=== PATIENT | female | born 1990 | race Caucasian/White ===

== ENCOUNTER 2018-03-08 15:12 | Outpatient (REF) | payer MEDICAID, SELFPAY ==
[2018-03-08 16:16] LABS: *AMPHETAMINES SCREEN URINE Negative (Negative); *BARBITURATES SCREEN URINE Negative (Negative); *BENZODIAZEPINES SCREEN URINE Negative (Negative); Cannabinoids THC Negative (Negative); Cocaine Screen,Urine Negative (Negative); METHADONE URINE SCREEN Negative (Negative); OPIATES URINE SCREEN Negative (Negative)
[2018-03-08 16:29] LABS: Tricyclic Antidepressants Negative (Negative)
[2018-03-12 16:24] LABS: Buprenorphine Negative; Norbuprenorphine Negative
== END 2018-03-08 15:32 ==
LOC: LBN 15:12
PROVIDERS: Visit Provider Nurse Practitioner
DX: Z34.91 Encounter for supervision of normal pregnancy, unspecified, first trimester (principal)
CPT/HCPCS: 80307; 87086

== ENCOUNTER 2018-04-05 09:35 | Outpatient (CLI) | payer MEDICAID, SELFPAY ==
[2018-04-05 10:17] LABS: Abs Immature Grans 0.03 k/cumm (0.0-0.09); Absolute Basophil Count 0.03 k/cumm (0.0-0.2); Absolute Eosinophil Count 0.06 k/cumm (0.0-0.7); Absolute Lymphocyte Count 1.79 k/cumm (1.2-3.4); Absolute Monocyte Count 0.58 k/cumm (0.11-0.7); Absolute Neutrophil Count 5.68 k/cumm (1.2-6.7); Basophils % 0.4; Eosinophils % 0.7; HGB 13.4 g/dL (12.0-15.5); Immature Grans % 0.4; Lymphocytes % 21.9; Mean Corp. HGB Concentration 33.5 g/dL (32.0-36.0); Mean Corpuscular Hemoglobin 28.3 pg (27.0-33.0); Mean Corpuscular Volume 84.6 fL (80-95); Mean Platelet Volume 9.2 fL (8.0-11.0); Monocytes % 7.1; Neutrophils % 69.5; Platelet Count 271 x1000/uL (130-400); RBC 4.73 m/cumm (4.00-5.20); RBC Distribution Width 12.7 % (11.7-14.6); White Blood Cell Count 8.17 k/cumm (4.4-10.8)
[2018-04-06 09:31] LABS: Hepatitis C Ab w Rflx HCV PCR Negative (NEGAT)
[2018-04-06 09:44] LABS: HIV-1/2 Ag & Ab Screen Negative (NEGAT)
[2018-04-06 10:08] LABS: Hepatitis B Surface Ag Negative (NEGAT)
[2018-04-06 11:43] LABS: Rubella IgG Ab (UVM) Positive; Syphilis Serology (RPR) Negative (Negative); Varicella IgG Antibody Positive
[2018-04-08 18:46] LABS: Result Summary NEGATIVE; Specimen WB Whole Blood
== END 2018-04-05 09:55 ==
PROVIDERS: Nurse Practitioner; PCP Nurse Practitioner; Visit Provider Advanced Practice Midwife
DX: Z34.91 Encounter for supervision of normal pregnancy, unspecified, first trimester (principal); Z01.84 Encounter for antibody response examination; Z11.4 Encounter for screening for human immunodeficiency virus [HIV]; Z11.59 Encounter for screening for other viral diseases; Z13.228 Encounter for screening for other metabolic disorders
CPT/HCPCS: 36415; 80055; 86787; 86803; 86850; 86900; 86901; 87340; 87389; 81220; 86592; 86762

== ENCOUNTER 2018-05-03 09:46 | Outpatient (CLI) | payer MEDICAID, SELFPAY ==
[2018-05-05 12:37] LABS: AFP 23.2 ng/mL; Calculated age at EDD 26 years; Cigarette smoking status non-smoker; GA used in risk estimate Dates estimate; INHIBIN 168 pg/mL; IVF Pregnancy No; Initial or repeat testing Initial testing; Insulin dependent diabetes No; Maternal Weight 155 lbs; Number of Fetuses 1; Physician Phone Number 802-748-7300; Prev Down(T21)/Trisomy Pregnan No; Prev Pregnancy w/NTD No; RECOMMENDED FOLLOW UP None.; Results Summary Normal risk; hCG, TOTAL 27.8 IU/mL; hCG, TOTAL MoM 1.01 MoM; uE3 1.74 ng/mL; uE3 MoM 1.48 MoM
== END 2018-05-03 10:06 ==
PROVIDERS: PCP Nurse Practitioner; Visit Provider Advanced Practice Midwife
DX: Z34.92 Encounter for supervision of normal pregnancy, unspecified, second trimester (principal); Z36.89 Encounter for other specified antenatal screening
CPT/HCPCS: 36415; 81511

== ENCOUNTER 2018-05-10 00:21 | Outpatient (CLI) | payer MEDICAID, SELFPAY ==
--- NOTE | 2018-05-10 14:02 | DI.US_ITS ---
Many abnormalities cannot be diagnosed. A normal exam does not exclude a congenital anomaly. Radiology No. LMP: Exam Date: 05/10/18 [facility] wks days on EDC ([facility]) 10/08/18 Confirmed: HISTORY: SURVEY, Z34.90 PREDICTED GESTATIONAL AGE NUMBER 18.3 weeks with a range of 17.3 week to 19.3 weeks. 1 Determined by___1STUS___LMP_X__EDC Info. pertaining to fetus # PLACENTA PRESENTATION Grade 0-1 Cephalic___ Anterior___Posterior_X__ Breech____ Right Left Transverse(head right___ Fundal___Low-lying___Previa___ Transverse(head left___ Varying___X___ BIOMETRY AMNIOTIC FLUID BPD: 43 mm 19 weeks Normal HC: 163 mm 19 weeks AC: 140 mm 19.3 weeks FL: 29 mm 19 weeks AMNIOTIC FLUID INDEX >26 WK CRL: mm weeks Cisterna Magna: 4 mm CI: 0.79 RUQ: LUQ Cerebellum: 1.8 cm EFW: 280 grams Percentile RLQ: LLQ Total: cms Composite AGE= 19.1 wks EDC by US 10/03/18 BIOPHYSICAL PROFILE ANATOMY IDENTIFIED SCORE 0/2 Heart: 4-Chamber__X_Rate:BPM__153___ LVOT: X____ RVOT: X__ Amniotic Fluid(>2cms)____ Stomach:____X___ Kidneys: X__ Respirations (>30 secs) Bladder: X___ Post. Fossa:____X Body Flex/Extension 3 vessel cord:__X____Ventricles: X cord insertion:__X___ Lips:_X___ Extremity Flex/Extension spinal morphology:___X Nose:X Total Score= Palate:__X____ NS=not seen The fetus was in variable position during the exam. The placenta is posterior. The biometric measurements correspond to 19 weeks 1 day. No abnormalities are identified. The amount of amniotic fluid appears normal. IMPRESSION: survey is within normal limits.
== END 2018-05-10 00:41 ==
PROVIDERS: PCP Nurse Practitioner; Visit Provider Advanced Practice Midwife
DX: Z34.92 Encounter for supervision of normal pregnancy, unspecified, second trimester (principal)
CPT/HCPCS: 76805

== ENCOUNTER 2018-07-19 07:25 | Outpatient (CLI) | payer MEDICAID, SELFPAY ==
[2018-07-19 08:47] LABS: HCT 34.1 % (36.0-46.0); HGB 11.3 g/dL (12.0-15.5); Mean Corp. HGB Concentration 33.1 g/dL (32.0-36.0); Mean Corpuscular Hemoglobin 27.9 pg (27.0-33.0); Mean Corpuscular Volume 84.2 fL (80-95); Mean Platelet Volume 8.8 fL (8.0-11.0); Platelet Count 281 x1000/uL (130-400); RBC 4.05 m/cumm (4.00-5.20); RBC Distribution Width 12.3 % (11.7-14.6); White Blood Cell Count 8.61 k/cumm (4.4-10.8)
[2018-07-19 08:52] LABS: Glucose,1 Hr (Glucola) 115 mg/dL (80-140)
== END 2018-07-19 07:45 ==
PROVIDERS: PCP Nurse Practitioner; Visit Provider Advanced Practice Midwife
DX: Z34.92 Encounter for supervision of normal pregnancy, unspecified, second trimester (principal); Z01.84 Encounter for antibody response examination
CPT/HCPCS: 36415; 82950; 85027; 86850; 90384

== ENCOUNTER 2018-09-14 14:40 | Outpatient (REF) | payer MEDICAID, SELFPAY ==
[2018-09-14 18:03] LABS: *AMPHETAMINES SCREEN URINE Negative (Negative); *BARBITURATES SCREEN URINE Negative (Negative); *BENZODIAZEPINES SCREEN URINE Negative (Negative); Cannabinoids THC Negative (Negative); Cocaine Screen,Urine Negative (Negative); METHADONE URINE SCREEN Negative (Negative); OPIATES URINE SCREEN Negative (Negative)
[2018-09-14 18:07] LABS: Tricyclic Antidepressants Negative (Negative)
[2018-09-17 13:53] LABS: Buprenorphine Negative; Norbuprenorphine Negative
== END 2018-09-14 15:00 ==
LOC: LBN 14:40
PROVIDERS: PCP Nurse Practitioner; Visit Provider Advanced Practice Midwife
DX: Z34.93 Encounter for supervision of normal pregnancy, unspecified, third trimester (principal); Z36.85 Encounter for antenatal screening for Streptococcus B
CPT/HCPCS: 80307; 87081

== ENCOUNTER 2018-09-30 21:42 | Inpatient (IN) | payer MEDICAID, SELFPAY ==
[2018-09-30 22:28] LABS: HCT 35.5 % (36.0-46.0); HGB 11.1 g/dL (12.0-15.5); Mean Corp. HGB Concentration 31.3 g/dL (32.0-36.0); Mean Corpuscular Hemoglobin 24.6 pg (27.0-33.0); Mean Corpuscular Volume 78.7 fL (80-95); Mean Platelet Volume 9.6 fL (8.0-11.0); Platelet Count 318 x1000/uL (130-400); RBC 4.51 m/cumm (4.00-5.20); RBC Distribution Width 14.3 % (11.7-14.6); White Blood Cell Count 11.09 k/cumm (4.4-10.8)
[2018-09-30] MEDS: Normal Saline Flush 10 ML SYR (22:30)
[2018-10-01] MEDS: Ibuprofen 600 MG TAB PO ×2 (00:24→11:08)
[2018-10-01] MEDS: Acetaminophen 325 MG TAB 650 MG PO ×2 (03:40→19:06)
[2018-10-01 07:20] LABS: HCT 33.1 % (36.0-46.0); HGB 10.5 g/dL (12.0-15.5); Mean Corp. HGB Concentration 31.7 g/dL (32.0-36.0); Mean Corpuscular Hemoglobin 24.9 pg (27.0-33.0); Mean Corpuscular Volume 78.6 fL (80-95); Mean Platelet Volume 9.5 fL (8.0-11.0); Platelet Count 285 x1000/uL (130-400); RBC 4.21 m/cumm (4.00-5.20); RBC Distribution Width 14.1 % (11.7-14.6); White Blood Cell Count 14.52 k/cumm (4.4-10.8)
[2018-10-01] MEDS: Hamamelis Leaf/Glycerin 100 EACH BOX PR (09:16)
[2018-10-01] MEDS: Sertraline 50 MG TAB PO (19:01)
[2018-10-02] MEDS: Ibuprofen 600 MG TAB PO (00:01)
== END 2018-10-02 10:00 | disposition home or self-care (01) | DRG 807 ==
PROVIDERS: Admitting Provider Advanced Practice Midwife; PCP Nurse Practitioner; Visit Provider Advanced Practice Midwife
DX: O77.0 Labor and delivery complicated by meconium in amniotic fluid (principal); Z37.0 Single live birth; Z3A.38 38 weeks gestation of pregnancy; O99.344 Other mental disorders complicating childbirth; F43.10 Post-traumatic stress disorder, unspecified; F32.9 Major depressive disorder, single episode, unspecified
CPT/HCPCS: 36415; 85027; 85461; 86850; 86900; 86901; 90384; 86870; J2790; J3490

== ENCOUNTER 2019-03-15 22:36 | Outpatient (REF) | payer MEDICAID, SELFPAY | END 2019-03-15 22:56 | LOC: NCHCN 22:36 | PROVIDERS: PCP Nurse Practitioner; Visit Provider Nurse Practitioner Family | DX: N89.8 Other specified noninflammatory disorders of vagina (principal) | CPT/HCPCS: 87480; 87510; 87660 ==

== ENCOUNTER 2019-08-22 14:54 | Outpatient (REF) | payer MEDICAID, SELFPAY | END 2019-08-22 15:14 | LOC: NCHCN 14:54 | PROVIDERS: PCP Nurse Practitioner Family; Visit Provider Nurse Practitioner Family | DX: R30.9 Painful micturition, unspecified (principal) | CPT/HCPCS: 87086 ==

== ENCOUNTER 2020-03-28 14:14 | Outpatient (REF) | payer MEDICAID, SELFPAY ==
[2020-03-31 16:34] LABS: COVID-19 RT-PCR Result NEGATIVE (Negative)
== END 2020-03-28 14:34 ==
LOC: NCHCN 14:14
PROVIDERS: PCP Nurse Practitioner Family; Visit Provider Family Medicine
DX: Z20.828 Contact with and (suspected) exposure to other viral communicable diseases (principal)
CPT/HCPCS: U0003

== ENCOUNTER 2020-05-07 14:51 | Outpatient (REF) | payer MEDICAID, SELFPAY ==
[2020-05-08 23:33] LABS: COVID-19 RT-PCR Result Positive (Negative)
== END 2020-05-07 15:11 ==
LOC: NCHCN 14:51
PROVIDERS: Family Medicine; PCP Nurse Practitioner Family; Visit Provider Internal Medicine
DX: Z20.822 Contact with and (suspected) exposure to COVID-19 (principal)
CPT/HCPCS: U0003

== ENCOUNTER 2020-05-25 15:52 | Outpatient (REF) | payer MEDICAID, SELFPAY ==
[2020-05-25 13:50] LABS: Bilirubin Negative (Negative); Blood Moderate (Negative); Clarity Sl Cloudy (Clear); Glucose Negative (Negative); Ketones Negative (Negative); Leukocyte Esterase Small (Negative); Nitrite Positive (Negative); Urobilinogen 0.2 EU/dL (Up TO 0.2)
[2020-05-25 14:07] LABS: WBC 20-50 HPF (0-5)
[2020-05-25 14:08] LABS: Bacteria Few HPF (Negative); C & S Indicated? No/Sq. Contamination; Casts Negative LPF (Negative); Crystals Negative HPF (Negative); Epithelial Cells Many HPF (Negative); Mucus Negative (Negative)
== END 2020-05-25 16:12 ==
LOC: NCHCN 15:52
PROVIDERS: PCP Nurse Practitioner Family; Visit Provider Family Medicine
DX: R30.0 Dysuria (principal)
CPT/HCPCS: 81003; 81015

== ENCOUNTER 2020-05-29 16:20 | Outpatient (REF) | payer MEDICAID, SELFPAY ==
[2020-05-30 14:09] LABS: Chlamydia Result Negative (Negative); GC Result Negative (Negative)
== END 2020-05-29 16:21 | disposition home or self-care (01) ==
LOC: NCHCN 16:20
PROVIDERS: PCP Nurse Practitioner Family; Visit Provider Family Medicine
DX: R30.0 Dysuria (principal)
CPT/HCPCS: 87491; 87591

== ENCOUNTER 2020-07-19 03:00 | Outpatient (CLI) | payer MEDICAID, SELFPAY ==
[2020-07-19 10:57] LABS: Ferritin 7 ng/mL (8-252)
== END 2020-07-19 03:01 | disposition home or self-care (01) ==
PROVIDERS: PCP Nurse Practitioner Family; Visit Provider Nurse Practitioner
DX: N92.0 Excessive and frequent menstruation with regular cycle (principal)
CPT/HCPCS: 36415; 82728

== ENCOUNTER 2020-09-18 15:47 | Outpatient (REF) | payer MEDICAID, SELFPAY ==
--- NOTE | 2020-09-18 15:15 | PAPFT_PTH ---
PATIENT: Margie Mariscal LOC: [facility] U#:[id number] AGE/SX: 30/F ROOM: RE09/18/[address]: Tiffany Edgar NP : 1990 BED: DIS: 09/18/2020 SPEC #: [id number] RECD: 09/18/20 18:18 STATUS: KATERINA REQ #: [id number] JACK: 09/18/20 15:[address]: Tala OCASIO,Tiffany DEPT: [facility] Cytology RECD BY: Karina Martin ENTERED: 09/18/20 18:19 SP TYPE: PAPFT OTHR DR: Evelin Aceves Tissues: 1 - CX/ENDOCX FOR PAP SMEARS Procedures: PAP THIN PREP/UVM Screening Comments: [id number] (CHLAMYDIA/GC)
[2020-09-19 14:07] LABS: Chlamydia Result Negative (Negative); GC Result Negative (Negative)
== END 2020-09-18 15:48 | disposition home or self-care (01) ==
LOC: LBN 15:47
PROVIDERS: PCP Nurse Practitioner Family; Visit Provider Nurse Practitioner Women's Health
DX: Z11.3 Encounter for screening for infections with a predominantly sexual mode of transmission (principal); Z12.4 Encounter for screening for malignant neoplasm of cervix
CPT/HCPCS: 87491; 87591; 88142

== ENCOUNTER 2020-10-10 00:56 | Outpatient (CLI) | payer MEDICAID, SELFPAY ==
--- NOTE | 2020-10-10 06:15 | DI.US_ITS ---
Exam(s) US PELVIS TRANSVAGINAL EXAM: US PELVIS TRANSVAGINAL CLINICAL HISTORY: Menorrhagia, dyspareunia, dysmenorrhea,n92.0,n94.6 TECHNIQUE: Ultrasound of the pelvis was performed both transabdominal and transvaginal. COMPARISON: US US OB 2-3 trimester from 05/10/2018 FINDINGS: UTERUS: Nongravid and anteverted Measures 8.6 cm length x 4.3 cm AP x 5.5 cm wide. There are no uterine fibroids. Endometrial thickness measures 2 mm. There is no fluid in the endometrial canal. CERVIX: There are no obvious nabothian cysts. RIGHT OVARY: Measures 3.2 x 1.9 x 2.1 cm Contains small follicular cysts measuring less than 1 cm. LEFT OVARY: Measures 0.2 x 1.6 x 1.8 cm Also contains small follicular cysts measuring less than 1 cm. Vascular flow is demonstrated in both ovaries. CUL-DE-SAC: No free fluid evident. IMPRESSION: 1. Normal appearing uterus and age-appropriate endometrium. 2. No abnormal ovarian findings. 3. No free fluid evident in the adnexal regions and cul-de-sac. DATA REPOSITORY:
== END 2020-10-10 01:16 ==
PROVIDERS: PCP Nurse Practitioner Family; Visit Provider Nurse Practitioner Women's Health
DX: N92.0 Excessive and frequent menstruation with regular cycle (principal); N94.6 Dysmenorrhea, unspecified; N94.10 Unspecified dyspareunia
CPT/HCPCS: 76830; 76856

== ENCOUNTER 2021-05-15 15:53 | Outpatient (REF) | payer MEDICAID, SELFPAY | END 2021-05-15 15:54 | disposition home or self-care (01) | LOC: LBN 15:53 | PROVIDERS: PCP Nurse Practitioner Family; Visit Provider Physician Assistant Medical | DX: N39.0 Urinary tract infection, site not specified (principal) | CPT/HCPCS: 87086 ==

== ENCOUNTER 2022-03-14 17:16 | Emergency (ER) | payer MEDICAID, SELFPAY ==
[2022-03-14 17:20] VITALS: BP 117/68; PULSE 69; RESP 17; TEMP 37.2; O2SAT 98
--- NOTE | 2022-03-14 17:29 | W.ED.GENAD ---
Discharge Plan Disposition Patient Disposition: Home Condition: Stable Discharge Details Clinical Impression: Abdominal pain, Abrasion Primary Care Provider: Evelin Aceves ED Provider: Carlene Cancino Home Meds and New Rx's Prescriptions: Continued melatonin 1 mg tablet 1 mg PO HS PRN Mirena 20 mcg/24 hours (6 yrs) 52 mg intrauterine device 1 device intrauterine ONCE Rx Instructions: as a single dose Discharge Instructions Instructions: Abrasion (ED), Abdominal Pain (ED) Additional Instructions: As we discussed, your exam is reassuring here today. Your IUD looks to be appropriately positioned but certainly if you have any persistent symptoms for the next few days, you should have a formal ultrasound through your gynecology team. Please encourage hydration. Tylenol and/or ibuprofen as needed for discomfort. If he develops increased pain, fever/chills, increased bleeding or other new/worsening symptoms please seek care urgently once again. Otherwise, please follow-up with primary care in 1 to 2 weeks for reevaluation. Referrals: Evelin Aceves [Primary Care Provider] - Discharge Data Discharge Date/Time-TO BE ENTERED AT DEPARTURE: 03/14/22 18:20 Medical Decision Making Patient is a pleasant 32-year-old female presented with chief complaint of abdominal trauma. She reports that this morning she was in a storage unit standing up on a piece of wood trying to get on a piece of heavy equipment. States that the wood broke and she fell striking her lower abdomen against a metal frame. States that initially she had some vaginal spotting which is since subsided. She is primarily concerned that IUD may have been displaced secondary to trauma. She did suffer an abrasion to her abdomen, tetanus is up-to-date. States that her pain has improved as has the vaginal spotting although she does remain uncomfortable. She has not had any analgesics as of yet to help with her discomfort. On exam, patient appears nontoxic. Vital signs are stable. Abdominal exam is reassuring. She does have a 6 cm superficial abrasion over the pelvic bone. No swelling or ecchymosis. No peritoneal findings on exam. Ultrasound performed by myself and Dr. Casanova with the IUD being able to be visualized from pelvic view. This does appear to be in appropriate alignment within the uterus. Remaining FAST exam without evidence of free fluid. Vaginal exam performed, no active bleeding from cervix, I do see some pink fluid consistent with perhaps some blood from earlier. No vaginal trauma is evident. Bimanual exam is reassuring with no chandelier sign or masses. Esmer and I discussed further advanced imaging including CT scan. At this time, she is feeling reassured and would prefer to hold off. Her pain and bleeding have improved throughout the day. Her PE and US are reassuring. Very strict return precautions were discussed. Discussed management of her discomfort. All of her questions and concerns were addressed, she is in agreement with this plan. Sign Out No HPI General Date/Time Provider Initiated Documentation: 03/14/22 17:28. Limitations to Documentation: no limitations. Information obtained by: patient and RN notes reviewed. History of Present Illness 32 year old F presents to the emergency department with the chief complaint of vaginal bleeding, abrasion to lower abdomen, described as mild, with intensity rated at 3. Quality is described as aching, and is localized to the abdomen. Patient reports no radiation. Patient started experiencing this hour(s) (began early this AM) and it has been constant (improving). No relieving factors improve symptom(s), No exacerbating factors reported . Patient notes denies chest pain, headaches, loss of appetite, malaise, nausea/vomiting, shortness of breath and weakness. Patient did receive the following treatments prior to arrival, none Related Data Home Medications Medication Instructions Recorded Confirmed melatonin 1 mg tablet 1 mg PO HS PRN 09/18/20 03/14/22 levonorgestrel 20 mcg/24 hours (8 1 device intrauterine ONCE 10/23/20 03/14/22 yrs) 52 mg intrauterine device (Mirena) Allergies Allergy/AdvReac Type Severity Reaction Status Date / Time sertraline [From Zoloft] Allergy Mild Other (See Unverified 03/14/22 17:26 Comment) General Stated Complaint: [employer] KERRI: 3 Review of Systems Constitutional Constitutional: Reports as per HPI, Denies fever(s) and Denies headache(s) ENT Ears, Nose, Mouth, and Throat: Denies headache(s) Cardiovascular Cardiovascular: Reports as per HPI, Denies chest pain and Denies dyspnea Respiratory Respiratory: Reports as per HPI, Denies cough and Denies dyspnea Gastrointestinal Gastrointestinal: Reports as per HPI Musculoskeletal Musculoskeletal: Reports as per HPI and Denies back pain Integumentary/Breasts Skin/Breast: Reports as per HPI Neurologic Neurologic: Reports as per HPI and Denies headache(s) PFSH All Active Problems (Updated 03/14/22 @ 18:17 by YISEL Buckley) Abdominal pain (Acute) Abrasion (Acute) IUD surveillance (Acute 10/23/20) Mirena Sleep apnea (Acute) Depression (Chronic) Has used sertraline in the past Surgical History (Updated 09/18/20 @ 15:22 by Tiffany Edgar NP) H/O sinus surgery S/p bilateral myringotomy with tube placement Family History Mother Chronic mental illness Drug abuse Father Medical history unknown Sister Chronic mental illness Drug abuse Social History Smoking/Tobacco Use Status: Never Tobacco: How many years used: 2 Smoking risk assessment performed?: Yes Alcohol Intake: never Substance use type: marijuana Counseling given: Yes Household members: significant other, children and other Details: 2 children: Rosy Beard Housing: house Number of Children: 2 current occupation: Stay at home What is your relationship status?: living with partner Panel score (0-1 are the most socially isolated patients): 1 Additional Social history: Relocated from [place]. Mando is employed at the [employer] for [employer] and travels extensively throughout [facility] Female Reproductive History Menstrual control method: other (partner with vasectomy) History History 7 Para 3 Hx # Term Pregnancies 3 Multiple births 0 Hx # Pregnancies 0 Ectopic pregnancies 0 AB induced 3 Hx Number of Living Children 3 AB spontaneous 1 Past Pregnancies Del. Date GA/Weeks # Preg Succ Route Wgt Sex Labor Lgth Anesthesia Location Prov Complic 09/17/09 39 No vaginal 3175.147 g Female 6-7 hours regional 09/04/16 41 No vaginal 3288.545 g Female IOL for postdates regional 09/30/18 No Male Delivery Date: 09/17/09 Last Updated by: Luh Dc CNM [facility], uncomplicated, 3 pushes Delivery Date: 09/04/16 Last Updated by: Millie Medina CNM epidural, IOL for postdates, uncomplicated, epidural had a painful window Delivery Date: 09/30/18 Last Updated by: OTIS Link Exam Const General: cooperative, healthy appearing, comfortable, no acute distress and well developed Nutritional Appearance: average body habitus and well nourished Orientation: alert and awake [facility] Head: normal to inspection Mouth: moist mucous membranes Resp Effort & Inspection: normal respiratory effort, able to speak in complete sentences and no respiratory distress Auscultation: clear to auscultation bilaterally, no rales, no rhonchi and no wheezes Cardio Rate: regular rate Rhythm: regular rhythm Heart Sounds: S1 normal and S2 normal GI Inspection: abnormal to inspection (abrasion to lower abdomen, no surrounding ecchymosis/swelling) Palpation: soft, no hepatosplenomegaly, not firm, no guarding, no masses, no pulsatile masses, not rigid and tender (over abrasion) obturator sign negative, psoas sign negative, with no rebound tenderness and Rovsing's sign negative Percussion: normal to percussion Auscultation: normal bowel sounds Abdomen image: 1. area of superficial abrasion, no deep laceration. No active bleeding. No surrounding erythema, warmth, swelling, ecchymosis. Tender over the area of abrasion, no peritoneal findings External Female Exam: normal external appearance, normal appearance of the urethra, no tenderness externally, no external swelling and no lesions Speculum Exam - Vagina: normal appearance of the vagina, normal vaginal discharge, no lacerations, No vaginal bleeding, no masses, no swelling and nontender Speculum Exam - Cervix: normal appearance of the cervix (IUD string in place) and nontender Bimanual Exam- Vagina & Uterus: normal bimanual exam, normal palpation and No tender Bimanual Exam- Adnexa, other: normal adnexae OB/External & Speculum: No vaginal bleeding Back/Spine/Pelvis Back: no CVA tenderness Skin Trauma: abrasion Neuro General: patient alert and patient awake Cognition: normal cognition Speech: speech normal Gait: normal gait Psych Appearance: grossly normal and well kempt Mental Status: mental status grossly normal Speech and Movement: speech and movement normal Course Vital Signs Vital signs: Vital Signs Temperature 37.2 C 03/14/22 17:20 Pulse 69 03/14/22 17:20 Respiratory Rate 17 03/14/22 17:20 Blood Pressure 117/68 03/14/22 17:20 Pulse Oximetry 98 11/18/22 17:20 Temperature 37.2 C 03/14/22 17:20 Temperature Source Oral 03/14/22 17:20 Pulse 69 03/14/22 17:20 Respiratory Rate 17 03/14/22 17:20 Respiratory Effort Non-Labored 03/14/22 17:23 Blood Pressure 117/68 03/14/22 17:20 Blood Pressure Position Sitting 03/14/22 17:20 Pulse Oximetry 98 03/14/22 17:20 Oxygen Delivery Method Room Air 03/14/22 17:20 Oxygen Flow Rate 0 03/14/22 17:20 Pain Level 3 03/14/22 17:23
[2022-03-14] MEDS: Acetaminophen 500 MG TAB ×2 (18:11)
[2022-03-14] MEDS: Ibuprofen 600 MG TAB (18:11)
== END 2022-03-14 18:20 | disposition home or self-care (01) ==
PROVIDERS: Emergency Provider Physician Assistant; PCP Nurse Practitioner Family
DX: R10.30 Lower abdominal pain, unspecified (principal); N93.8 Other specified abnormal uterine and vaginal bleeding; W17.89XA Other fall from one level to another, initial encounter; S30.810A Abrasion of lower back and pelvis, initial encounter
CPT/HCPCS: 81025; 99283

== ENCOUNTER 2022-06-20 00:52 | Outpatient (CLI) | payer MEDICAID, SELFPAY ==
--- NOTE | 2022-06-20 08:00 | DI.US_ITS ---
Exam(s) US PELVIS TRANSVAGINAL EXAM: US PELVIS TRANSVAGINAL CLINICAL HISTORY: heavy menstrual bleeding,N92.0 TECHNIQUE: Transabdominal and transvaginal imaging was performed using standard protocol. COMPARISON: US US PELVIS TRANSVAGINAL from 10/10/2020 FINDINGS: UTERUS: Anteverted. 9.6 x 4.7 x 5.9 cm Endometrium: 9 mm Myometrium: Unremarkable. Cervix: Unremarkable. OVARIES: Right: Cyst or mass: 1.9 centimeter follicle. Left: Cyst or mass: None. DOPPLER: Color: Symmetric and uniform flow to both ovaries. No hyperemia. CUL-DE-SAC: Free fluid: None. IMPRESSION: 1. Normal-appearing uterus with endometrial stripe within normal limits. 2. Unremarkable bilateral ovaries. DATA REPOSITORY:
== END 2022-06-20 01:12 ==
LOC: DI 00:52
PROVIDERS: PCP Nurse Practitioner Family; Visit Provider Nurse Practitioner Women's Health
DX: N92.0 Excessive and frequent menstruation with regular cycle (principal)
CPT/HCPCS: 76830; 76856

== ENCOUNTER 2022-08-01 15:49 | Outpatient (REF) | payer MEDICAID, SELFPAY ==
[2022-08-04 10:03] LABS: HIV-1/2 Ag & Ab Screen Negative (Negative)
[2022-08-04 11:09] LABS: HSV Type 1 Ab, IgG Negative (Negative); HSV Type 2 Ab, IgG Negative (Negative)
[2022-08-04 12:02] LABS: Syphilis Serology (RPR) Negative (Negative)
== END 2022-08-01 15:50 | disposition home or self-care (01) ==
LOC: NCHCN 15:49
PROVIDERS: PCP Nurse Practitioner Family; Visit Provider Family Medicine
DX: Z11.3 Encounter for screening for infections with a predominantly sexual mode of transmission (principal)
CPT/HCPCS: 87389; 86592; 86695; 86696

== ENCOUNTER 2022-12-27 14:45 | Outpatient (REF) | payer MEDICAID, SELFPAY ==
[2022-12-27 16:07] LABS: Abs Immature Grans 0.02 10^3/uL (0.0-0.06); Absolute Basophil Count 0.05 10^3/uL (0.0-0.2); Absolute Lymphocyte Count 2.07 10^3/uL (1.2-3.4); Absolute Monocyte Count 0.42 10^3/uL (0.1-0.8); Absolute Neutrophil Count 4.93 10^3/uL (1.2-6.7); Basophils % 0.7; Eosinophils % 1.3; HCT 41.3 % (36.0-46.0); HGB 13.8 g/dL (11.2-15.7); Immature Grans % 0.3; Lymphocytes % 27.3; MCH 28.6 pg (27.0-33.0); MCHC 33.4 % (32.0-36.0); MCV 86 fL (80-95); MPV 9.2 fL (8.0-11.0); Monocytes % 5.5; Neutrophils % 64.9; Platelet Count 298 10^3/uL (130-400); RBC 4.83 10^6/uL (3.93-5.22); RDW 11.9 % (11.7-14.6); RDW-SD 36.6 fL; WBC 7.59 10^3/uL (4.4-10.8)
[2022-12-27 16:16] LABS: ESR 6 mm/hr (0-20)
[2022-12-27 16:43] LABS: ALT 14 U/L (14-59); AST 12 U/L (15-37); Albumin 4.1 g/dL (3.4-5.0); Alkaline Phosphatase 58 U/L (46-116); Anion Gap 10.2 mmol/L (3-11); BUN 10 mg/dL (7-18); Bilirubin, Total 0.4 mg/dL (0.2-1.0); CO2 27.8 mmol/L (21.0-32.0); CREATININE 0.6 mg/dL (0.55-1.02); Calcium 9.1 mg/dL (8.5-10.1); Chloride 102 mmol/L (98-107); Estimated GFR 123.76 (mL/min/1.73m2); Glucose 94 mg/dL (74-106); Potassium 4.2 mmol/L (3.5-5.1); Sodium 140 mmol/L (136-145); TSH (W/Ref FT4) 0.83 uIU/mL (0.36-3.74); Total Protein 7.7 g/dL (6.4-8.2)
[2022-12-29 10:50] LABS: Lyme Ab w Rflx to Lyme Confirm Negative (Negative)
[2022-12-31 08:06] LABS: Anaplasma phagocytophilum Negative (Negative); B. miyamotoi PCR Negative (Negative); Babesia divergens/MO-1 Negative (Negative); Babesia duncani Negative (Negative); Babesia microti Negative (Negative); Ehrlichia chaffeensis Negative (Negative); Ehrlichia ewingii/canis Negative (Negative); Ehrlichia muris eauclairensis Negative (Negative)
== END 2022-12-27 14:46 | disposition home or self-care (01) ==
LOC: LBN 14:45
PROVIDERS: PCP Nurse Practitioner Family; Visit Provider Family Medicine
DX: R53.83 Other fatigue (principal)
CPT/HCPCS: 80053; 85652; 87798; 84443; 85025; 86618

== ENCOUNTER 2023-02-13 18:54 | Outpatient (REF) | payer MEDICAID, SELFPAY ==
[2023-02-13 14:44] LABS: HGB 13.6 g/dL (11.2-15.7); MCHC 33.2 % (32.0-36.0); MCV 87 fL (80-95); Platelet Count 314 10^3/uL (130-400); RBC 4.69 10^6/uL (3.93-5.22); RDW 12.2 % (11.7-14.6); RDW-SD 39.2 fL; WBC 6.87 10^3/uL (4.4-10.8)
== END 2023-02-13 18:55 | disposition home or self-care (01) ==
LOC: NCHCN 18:54
PROVIDERS: PCP Nurse Practitioner Family; Visit Provider Family Medicine
DX: G25.81 Restless legs syndrome (principal)
CPT/HCPCS: 85027

== ENCOUNTER 2023-02-25 00:12 | Emergency (ER) | payer MEDICAID, SELFPAY ==
[2023-02-25 00:15] VITALS: BP 123/64; PULSE 96; RESP 18; TEMP 36.8; O2SAT 99
--- NOTE | 2023-02-25 00:30 | DI.RAD_ITS ---
Exam(s) XR FOOT LT COMPLETE EXAM: XR FOOT LT COMPLETE CLINICAL HISTORY: pain post fall. TECHNIQUE: 2D digital imaging was performed. Three views. COMPARISON: No exams were available for comparison FINDINGS: BONES: There is a E tiny sliver of bone seen adjacent to the dorsal aspect of the anterior talus whic h could represent a small avulsion fragment. No additional fractures are suspected.. No bony destru ctive lesion is seen. JOINTS: No dislocation present. SOFT TISSUE: Normal. IMPRESSION: Small avulsion fragment from the dorsal aspect of the talus. DATA REPOSITORY: RADIATION DOSE DELIVERED:
--- NOTE | 2023-02-25 00:37 | W.ED.GENAD ---
Discharge Plan Disposition Patient Disposition: Home Discharge Details Clinical Impression: Foot fracture, left Primary Care Provider: Evelin Aceves ED Provider: Ana M Aguayo Home Meds and New Rx's Prescriptions: Continued melatonin 1 mg tablet 1 mg PO HS PRN duloxetine 20 mg capsule,delayed release(DR/EC) 20 mg PO DAILY Patient Comments: TAKE ONE CAPSULE BY MOUTH EVERY DAY gabapentin 100 mg capsule 100 mg PO .at bedtime Patient Comments: TAKE 1 CAPSULE BY MOUTH AT BEDTIME Discharge Instructions Instructions: Foot Fracture in Adults (ED) Additional Instructions: Ice 20 minutes on and 20 minutes off for the next 72 hours. An Jeremie wrap and elevation may help with swelling. A loose shoe will help. Crutches with touchdown weightbearing as tolerated. Recheck with Dr. Hernandez from ortho as needed; they will call you with a follow up appt. Expect your foot to get more swollen and black and blue before it starts to get better. Ibuprofen 600 mg every 6 hours and/or Tylenol 650 mg every 6 hours as needed for pain. Discharge Data Discharge Date/Time-TO BE ENTERED AT DEPARTURE: 02/25/23 01:47 Medical Decision Making Patient was updated on the tiny avulsion or chip fracture. Jeremie wrap, ice, and elevation for swelling. Crutches with touchdown weightbearing as tolerated. Recheck with orthopedics who will call her for follow-up appointment. Medical Records Medical records reviewed: Yes I reviewed the patient's medical records. Imaging Data Radiologic Study: Imaging: X-Ray Radiologist's impression: Left foot: Tiny calcification at the dorsal margin of the talar head suspicious for small acute capsular avulsion injury. HPI General Date/Time Provider Initiated Documentation: 02/25/23 00:35. HPI Narrative: This 33-year-old female patient presents with a chief complaint of left foot pain sustained after falling on stairs. She twisted her foot when someone grabbed her, she lost her balance, and they did not hold onto her. She denies hitting her head or any neck pain. She cannot walk on it. She does have some lateral midfoot swelling but no ankle pain. There is no numbness or weakness. There is no other injury. Related Data Home Medications Medication Instructions Recorded Confirmed melatonin 1 mg tablet 1 mg PO HS PRN 09/18/20 02/25/23 duloxetine 20 mg capsule,delayed 20 mg PO DAILY 02/25/23 02/25/23 release gabapentin 100 mg capsule 100 mg PO .at bedtime 02/25/23 02/25/23 Allergies Allergy/AdvReac Type Severity Reaction Status Date / Time sertraline [From Zoloft] Allergy Mild Other (See Unverified 02/25/23 00:20 Comment) General Stated Complaint: Orthopedic KERRI: 4 Review of Systems All systems reviewed & are unremarkable except as noted in HPI and below PFSH All Active Problems (Updated 02/25/23 @ 01:14 by Ana M Aguayo MD) Foot fracture, left (Acute) Heavy menstrual bleeding (Acute) Sleep apnea (Acute) Depression (Chronic) Has used sertraline in the past Surgical History H/O sinus surgery S/p bilateral myringotomy with tube placement Family History Mother Chronic mental illness Drug abuse Father Medical history unknown Sister Chronic mental illness Drug abuse Social History Smoking/Tobacco Use Status: Current-Occasional Tobacco Type: cigarettes Tobacco: How many years used: 2 Smoking risk assessment performed?: Yes Alcohol Intake: never Substance use type: does not use Counseling given: Yes Household members: significant other, children and other Details: 2 children: Kisha, Rosy Housing: house Number of Children: 2 current occupation: Stay at home What is your relationship status?: living with partner Panel score (0-1 are the most socially isolated patients): 1 Do you feel safe at home: Yes Do you feel safe in your relationship?: Yes Additional Social history: Relocated from [place]. Mando is employed at the [employer] for [employer] and travels extensively throughout [facility] Female Reproductive History Menstrual control method: other (partner with vasectomy) History History 7 Para 3 Hx # Term Pregnancies 3 Multiple births 0 Hx # Pregnancies 0 Ectopic pregnancies 0 AB induced 3 Hx Number of Living Children 3 AB spontaneous 1 Past Pregnancies Del. Date GA/Weeks # Preg Succ Route Wgt Sex Labor Lgth Anesthesia Location Prov Complic 09/17/09 39 No vaginal 3175.147 g Female 6-7 hours regional 09/04/16 41 No vaginal 3288.545 g Female IOL for postdates regional 09/30/18 No Male Delivery Date: 09/17/09 Last Updated by: Luh Dc CNM [facility], [facility], uncomplicated, 3 pushes Delivery Date: 09/04/16 Last Updated by: Millie Medina CNM epidural, IOL for postdates, uncomplicated, epidural had a painful window Delivery Date: 09/30/18 Last Updated by: OTIS Link Exam Const General: no acute distress, well developed and well groomed Nutritional Appearance: well nourished Orientation: alert and awake Limitations: mental status not altered HENHI Head: normocephalic and atraumatic Eyes Conjunctivae: conjunctivae normal Neck Neck: supple Resp Effort & Inspection: normal respiratory effort Skin General skin exam: no ecchymosis, no erythema and other (mild edema L lateral forefoot) Neuro General: patient alert and patient awake Cognition: normal cognition Speech: speech normal Gait: other (unable to bear weight) Sensory Exam: no sensory deficits noted Extrem Left lower extremity: ankle (no malleolar TTP, no ligament TTP) and foot (L lat midfoot edema and TTP, remainder NTP, nl color/temp/CR/DP pulse) Course Vital Signs Vital signs: Vital Signs Temperature 36.8 C 02/25/23 00:15 Pulse 96 H 02/25/23 00:15 Respiratory Rate 18 02/25/23 00:15 Blood Pressure 123/64 02/25/23 00:15 Pulse Oximetry 99 02/25/23 00:15 Temperature 36.8 C 02/25/23 00:15 Temperature Source Temporal Artery Scan 02/25/23 00:15 Pulse 96 H 02/25/23 00:15 Respiratory Rate 18 02/25/23 00:15 Respiratory Effort Normal, Non-Labored 02/25/23 00:19 Blood Pressure 123/64 02/25/23 00:15 Blood Pressure Position Sitting 02/25/23 00:15 Pulse Oximetry 99 02/25/23 00:15 Oxygen Delivery Method Room Air 02/25/23 00:15 Oxygen Flow Rate 0 02/25/23 00:15 Pain Level 2 02/25/23 00:15 PAWSS Have you Been Recently Intoxicated or Drunk Within the Last 30 days?: No Have you Ever Experienced Previous Episodes of Alcohol Withdrawal?: No Have you ever Experienced Withdrawal Seizures?: No Have you ever Experienced Delirium Tremens(DT)s?: No Have you ever undergone Alcohol Rehabilitation Treatment (i.e, inpt ot outpatient treatment programs)?: No Have you ever Experienced Blackouts?: No Have you ever Combined Alcohol with other Downers within the last 90 days?: No Have you ever Combined Alcohol with any other Substance of Abuse during the last 90 days?: No Positive Blood Alcohol level on Presentation? [PCS.BAL]: No Evidence of Increased Autonomic Activity (i.e. HR>120, tremor, sweating, agitation, nausea)?: No Result: 0
[2023-02-25] MEDS: Ibuprofen 600 MG TAB PO (00:41)
--- NOTE | 2023-02-25 01:05 | DI.VRAD_ITS ---
PROCEDURE INFORMATION: Exam: XR Left Foot Exam date and time: 02/25/2023 12:45 AM Age: 33 years old Clinical indication: Injury or trauma; Blunt trauma; Foot; Left; Injury date: 02/24/23; Injury details: Pain post fall TECHNIQUE: Imaging protocol: Radiologic exam of the left foot. Views: 3 or more views. COMPARISON: No relevant prior studies available. FINDINGS: Bones/joints: There is a thin 3 x 1 mm calcification at the dorsal margin of the talar neck suspicious for small acute dorsal capsular avulsion injury at the talonavicular joint. No jong macro fractures. Normal alignment is maintained in the midfoot, hindfoot, and forefoot. Joint spaces are well-maintained. No blastic or lytic lesions. Normal osseous mineralization. No gross ankle joint effusion. Soft tissues: No periostitis. No gross soft tissue abnormalities. No radiopaque foreign bodies. Other findings: No osteolysis. Fibro-osseous calcaneonavicular coalition noted. IMPRESSION: 1. Thin calcification at the dorsal margin of the talar head suspicious for small acute capsular avulsion injury. 2. No jong macro fracture or dislocation. 3. Fibro-osseous calcaneonavicular coalition noted. Dictated and Authenticated by: Celso Villarreal MD. Ordering:ARMINDA Viramontes MD
== END 2023-02-25 01:47 | disposition home or self-care (01) ==
PROVIDERS: Emergency Provider Emergency Medicine; PCP Nurse Practitioner Family
DX: S92.155A Nondisplaced avulsion fracture (chip fracture) of left talus, initial encounter for closed fracture (principal); F17.210 Nicotine dependence, cigarettes, uncomplicated; W10.9XXA Fall (on) (from) unspecified stairs and steps, initial encounter; Y93.01 Activity, walking, marching and hiking; Y92.018 Other place in single-family (private) house as the place of occurrence of the external cause
CPT/HCPCS: 99283; 73630

== ENCOUNTER 2023-03-03 14:06 | Outpatient (CLI) | payer MEDICAID, SELFPAY ==
--- NOTE | 2023-03-03 14:00 | DI.RAD_ITS ---
Exam(s) XR ANKLE LT COMPLETE EXAM: XR ANKLE LT COMPLETE CLINICAL HISTORY: F/U FRACTURE. TECHNIQUE: 2D digital imaging was performed. COMPARISON: CR,XR XR FOOT LT COMPLETE from 02/25/2023 FINDINGS: 3 views The avulsion fracture fragment off the dorsal aspect of the distal talus is again noted, unchanged. It appears unchanged. No new additional fractures evident. Talar dome unremarkable. No degenerativ e changes evident. IMPRESSION: Appearance is unchanged from 02/25/2023. DATA REPOSITORY: RADIATION DOSE DELIVERED:
== END 2023-03-03 14:07 | disposition home or self-care (01) ==
LOC: DIORS 14:06
PROVIDERS: PCP Nurse Practitioner Family; Visit Provider Student in an Organized Health Care Education/Training Program
DX: S92.152D Displaced avulsion fracture (chip fracture) of left talus, subsequent encounter for fracture with routine healing (principal); X58.XXXD Exposure to other specified factors, subsequent encounter
CPT/HCPCS: 73610

== ENCOUNTER 2023-06-30 09:05 | Emergency (ER) | payer MEDICAID, SELFPAY ==
[2023-06-30 09:08] VITALS: BP 146/93; PULSE 74; RESP 20; TEMP 37.3; O2SAT 100
--- NOTE | 2023-06-30 09:15 | DI.CT_ITS ---
Exam(s) CT ABDOMEN PELVIS W EXAM: CT ABDOMEN PELVIS W CLINICAL HISTORY: LLQ tenderness, n/v TECHNIQUE: Imaging Protocol: Axial computed tomography images with coronal and sagittal reformatted images were created and reviewed. CONTRAST MATERIAL: Intravenous: Omnipaque 350 Contrast volume:100 mL Oral: No COMPARISON: No exams were available for comparison FINDINGS: ABDOMEN: Lung Bases: Normal where visualized. Liver: Normal density. Small well-circumscribed hypodensities are seen in the liver. They are too sm all for further characterization but likely reflect small cysts. No suspicious hepatic masses are pr esent. Portal, Superior Mesenteric, and Splenic Veins: Unremarkable. Gallbladder and Biliary Tract: No radiodense calculus or dilation. Pancreas: Normal density, no abnormal calcifications or inflammatory process. Spleen: Normal. Adrenals: No masses seen. Kidneys: Normal size, contour and axis. 2 mm nonobstructing stone is seen in the lower pole of the ri ght kidney. No masses seen. Abdominal Aorta: Abdominal portion non-dilated. Bowel: No obstruction or bowel wall thickening. There is a moderate amount of stool in the colon. Th ere is a normal appendix present. The stomach is incompletely distended limiting evaluation. Peritoneal Cavity: There is a trace amount of free fluid in the pelvis which is likely physiologic. No free air. Lymph Nodes: Within normal limits. Bones: Within normal limits for the patient's age. Soft Tissues: Unremarkable. PELVIS: Bladder: Symmetric distention, no gross wall thickening. Reproductive Organs: There is a 1.7 cm left ovarian cyst. The reproductive organs are otherwise unre markable. Lymph Nodes: Within normal limits. Bones: Within normal limits for the patient's age. IMPRESSION: 1. 1.7 cm left ovarian cyst. Trace amount of free fluid in the pelvis which is likely physiologic. 2. No evidence of bowel obstruction or inflammation. 3. Right nephrolithiasis. No obstructive uropathy. RADIATION DOSE DELIVERED: Total DLP DATA REPOSITORY: All CT scans at this facility are submitted to the National Radiology Data Registry (NRDR) Dose Index Registry (DIR) with the [employer] (A[employer]). RADIATION OPTIMIZATION: All CT scans at this facility use at least one of these dose optimization te chniques: automated exposure control; mA and/or kV adjustment per patient size (includes targeted exa ms where dose is matched to clinical indication); or iterative reconstruction.
--- NOTE | 2023-06-30 09:21 | ED.GENADUL_ITS ---
Discharge Plan Disposition Patient Disposition: Home Condition: Stable Discharge Details Clinical Impression: Left ovarian cyst Primary Care Provider: Evelin Aceves ED Provider: Vishnu Fitzpatrick Home Meds and New Rx's Prescriptions: Continued melatonin 1 mg tablet 1 mg PO HS PRN duloxetine 20 mg capsule,delayed release(DR/EC) 20 mg PO DAILY Patient Comments: TAKE ONE CAPSULE BY MOUTH EVERY DAY Discharge Instructions Instructions: Ovarian Cyst (ED) Additional Instructions: You were seen in the emergency department for your nausea and vomiting with coughing and some itching and numbness. We provided you with IV Tylenol as well as IV ibuprofen called Toradol, nausea medicine called ondansetron which I am sending you home with 3 tablets of to help with nausea for the next day or so. Take this medication 20 to 30 minutes before attempting slow hydration and nutrition as we discussed. Please use any [id number]-lnm-[id number] cold medicines at consistent dosings for a few days for any symptomatic relief of cough, take Benadryl for any itching, if you have severe increasing symptoms especially with fever or spreading numbness or weakness please return to the ER. Your CT scan shows you have a 1.7 cm left ovarian cyst which can cause pain in the left lower flank and abdomen as you are experiencing. You may follow-up with the women's health provider for ultrasound of the cyst but will likely resolve on its own in time. Please use therapeutic dosing of Tylenol (acetamenophen) & Advil (ibuprofen) in an alternating fashion as follows: Take 1000mg of Tylenol every 6 hours without missing doses- that is 4 times per day. [place] in between the Tylenol dosings, take 400-600mg of Advil also on a 6 hour schedule, that is also 4 times per day. The daily maximum dosing of Tylenol is 4000mg, and the daily maximum dosing of Advil is 2400mg. This is safe to do for weeks. Please note that some common cold medications & prescription pain medications may contain acetamenophen and you need to read OTC drug labels and factor that in to maximum daily dosings. Referrals: Evelin Aceves [Primary Care Provider] - HPI General Date/Time Provider Initiated Documentation: 06/30/23 09:20 . HPI Narrative: 33 year-old female presents to ED today by POV/ambulating with a chief complaint of lethargy, fatigue, nausea/vomiting, LLQ abdominal pain with onset 2 days ago. Quality described as just feels awful- nausea/vomiting, denies dysuria, no radiation to chest pain, shortness of breath, endorses cough, denies high fever. Severity is described as severe. Palliating factors include nothing specific attempted. Provoking factors include nothing specific. Events leading up to the incident/Associated Symptoms: Patient states her PCP gives her Cymbalta, states she may have psychosomatic symptoms intermittently. Patient not anticoagulated. Related Data Home Medications Medication Instructions Recorded Confirmed melatonin 1 mg tablet 1 mg PO HS PRN 09/18/20 06/30/23 duloxetine 20 mg capsule,delayed 20 mg PO DAILY 02/25/23 06/30/23 release Allergies Allergy/AdvReac Type Severity Reaction Status Date / Time sertraline [From Zoloft] Allergy Mild Other (See Unverified 06/30/23 09:12 Comment) General Stated Complaint: [facility] KERRI: 3 Review of Systems All systems reviewed & are unremarkable except as noted in HPI and below Exam Narrative Exam Narrative: GENERAL APPEARANCE: Well-nourished, non-toxic, awake and alert, atraumatic, no a cute distress. SKIN: Warm, pink, dry, intact, without rashes/lesions/ulcerations. HEAD: Normocephalic, atraumatic, normal hair distribution for gender/age. EYES: Pupils PERRLA, EOMs intact without nystagmus, normal conjunctiva, no exudates on lids/lashes. ENT: Nares patent, no circumoral cyanosis, no facial swelling NECK: Supple, trachea midline, painless cervical ROM. LUNGS/CHEST: Lungs CTA bilaterally- no wheezes/rhonchi/rales diffusely, non- labored respirations, normal A/P diameter, symmetrical expansion, no chest wall deformity HEART (CV/PV): Regular rate and rhythm without murmur, no peripheral edema, no JVD. ABDOMEN: Soft, non-distended, no guarding, LLQ tenderness without rebound tenderness, mild RLQ tenderness. MSK: Normal ROM, no swelling/deformity to bilateral UEs or LEs, moving all extremities without weakness, no cyanosis, spine midline without tenderness, normal curvature. NEURO: Mental Status AAOx4 - alert to person, place, time, events No facial droop, no forehead involvement. Motor: No focal weakness - strength 5/5 in bilateral UEs and LEs, proximal and distal, symmetric. Sensory: sensation intact to light touch globally. Gait normal: patient ambulated without ataxia into ED room. PSYCH: dysthymic, somewhat uncooperative with exam- refusing to roll over, pleasant, appropriate speech Course Vital Signs Vital signs: Vital Signs Temperature 37.3 C 06/30/23 09:08 Pulse 74 06/30/23 09:08 Respiratory Rate 20 06/30/23 09:08 Blood Pressure 146/93 H 06/30/23 09:08 Pulse Oximetry 100 06/30/23 09:08 Temperature 37.3 C 06/30/23 09:08 Pulse 74 06/30/23 09:08 Respiratory Rate 20 06/30/23 09:08 Blood Pressure 146/93 H 06/30/23 09:08 Pulse Oximetry 100 06/30/23 09:08 Oxygen Delivery Method Room Air 06/30/23 09:08 Oxygen Flow Rate 0 06/30/23 09:08 Medical Decision Making This dictation utilizes [id number] dictation software and may contain unedited grammatical errors. 33 y/o F presents to ED today with a chief complaint of nausea/vomiting, coughing, just feels fatigued- denies chest pain, states feels itchy in her face, states her PCP sometimes gives her Cymbalta for possible psychosomatic illnesses. Patient denies respiratory distress, has been vomiting intermittently for two days. Patients' medical history: noncontributory. Family and social history: noncontributory. Pertinent exam findings / vital signs include LLQ abdominal tenderness, benign CP exam, neuro intact. Differential / pathologies of concern include gastroenteritis, cyclical vomiting syndrome, viral syndrome, URI, colitis, pyelonephritis, ovarian pathology. Diagnostic studies of: -CBC, CMP, lactate, procalcitonin, CK, CRP/ESR, POC urine test, urinalysis, COVID/flu/RSV PCR, magnesium, lipase, CT abdomen pelvis with contrast. -CBC shows no leukocytosis, no anemia -CMP shows mildly low K+ at 3.4, would replete with normal PO intake -Lactate negative, Procalcitonin negative - do not suspect sepsis -CRP mild elev 1.45 -UA shows trace blood and small leuk esterase, 5-10 WBCs, will await culture results for possible UTI -CK negative -Lipase wnl -CT shows 1.7cm L ovarian cyst with some physiologic free fluid, likely cause of symptoms Interventions of: -IVF 1L Saline, IV Tylenol, Toradol, Ondansetron, Dexamethasone. ED Course/Assessment/Plan: 33-year-old female patient presents with left lower abdominal pain with some nausea and vomiting, also having a cough without respiratory distress. Patient has a question of psychosomatic symptomology treated with Cymbalta in the past. She tolerated IV medicines here and was feeling better, there is a 1.7 cm left ovarian cyst, likely cause of her abdominal pain, recommend she use ondansetron which was provided at home for symptomatic relief as there is possible concurrent gastroenteritis. Strict return criteria for inability to tolerate p.o. intake especially with increasing pain and fever. Findings not consistent with sepsis, intractable nausea or vomiting, ovarian torsion, respiratory distress. Disposition of left ovarian cyst. Patient verbalized understanding of the plan and return to ED criteria and engaged in shared decision making. Medical Records Medical records reviewed: Yes I reviewed the patient's medical records. Imaging Data Radiologic Study: Attestation: I personally reviewed and interpreted this imaging study as follows: Imaging: CT Scan Radiologist's impression: EXAM: CT ABDOMEN PELVIS W CLINICAL HISTORY: LLQ tenderness, n/v TECHNIQUE: Imaging Protocol: Axial computed tomography images with coronal and sagittal reformatted images were created and reviewed. CONTRAST MATERIAL: Intravenous: Omnipaque 350 Contrast volume:100 mL Oral: No COMPARISON: No exams were available for comparison FINDINGS: ABDOMEN: Lung Bases: Normal where visualized. Liver: Normal density. Small well-circumscribed hypodensities are seen in the liver. They are too small for further characterization but likely reflect small cysts. No suspicious hepatic masses are present. Portal, Superior Mesenteric, and Splenic Veins: Unremarkable. Gallbladder and Biliary Tract: No radiodense calculus or dilation. Pancreas: Normal density, no abnormal calcifications or inflammatory process. Spleen: Normal. Adrenals: No masses seen. Kidneys: Normal size, contour and axis. 2 mm nonobstructing stone is seen in the lower pole of the right kidney. No masses seen. Abdominal Aorta: Abdominal portion non-dilated. Bowel: No obstruction or bowel wall thickening. There is a moderate amount of stool in the colon. There is a normal appendix present. The stomach is incompletely distended limiting evaluation. Peritoneal Cavity: There is a trace amount of free fluid in the pelvis which is likely physiologic. No free air. Lymph Nodes: Within normal limits. Bones: Within normal limits for the patient's age. Soft Tissues: Unremarkable. PELVIS: Bladder: Symmetric distention, no gross wall thickening. Reproductive Organs: There is a 1.7 cm left ovarian cyst. The reproductive organs are otherwise unremarkable. Lymph Nodes: Within normal limits. Bones: Within normal limits for the patient's age. IMPRESSION: 1. 1.7 cm left ovarian cyst. Trace amount of free fluid in the pelvis which is likely physiologic. 2. No evidence of bowel obstruction or inflammation. 3. Right nephrolithiasis. No obstructive uropathy. Quality:SDOH Health Related Social Needs: No Data to Display PFSH All Active Problems (Updated 06/30/23 @ 12:43 by YISEL Cordova) Left ovarian cyst (Acute) Avulsion fracture of left talus (Acute ~02/24/23) Tarsal coalition of left foot (Acute) Heavy menstrual bleeding (Acute) Sleep apnea (Acute) Depression (Chronic) Has used sertraline in the past Surgical History H/O sinus surgery S/p bilateral myringotomy with tube placement Family History Mother Chronic mental illness Drug abuse Father Medical history unknown Sister Chronic mental illness Drug abuse Social History Smoking/Tobacco Use Status: Current-Occasional Tobacco Type: cigarettes Tobacco: How many years used: 2 Smoking risk assessment performed?: Yes Alcohol Intake: never Substance use type: does not use Counseling given: Yes Household members: significant other, children and other Details: 2 children: Kisha, Rosy Housing: house Number of Children: 2 current occupation: Stay at home What is your relationship status?: living with partner Panel score (0-1 are the most socially isolated patients): 1 Do you feel safe at home: Yes Do you feel safe in your relationship?: Yes Additional Social history: Relocated from [place]. Mando is employed at the [employer] and travels extensively throughout [facility] Female Reproductive History Menstrual control method: other (partner with vasectomy) History History 7 Para 3 Hx # Term Pregnancies 3 Multiple births 0 Hx # Pregnancies 0 Ectopic pregnancies 0 AB induced 3 Hx Number of Living Children 3 AB spontaneous 1 Past Pregnancies Del. Date GA/Weeks # Preg Succ Route Wgt Sex Labor Lgth Anesth esia Location Prov Complic 09/17/09 39 No vaginal 3175.147 g Female 6-7 hours regional 09/04/16 41 No vaginal 3288.545 g Female IOL for postdates re gional 09/30/18 No Male Delivery Date: 09/17/09 Last Updated by: Luh Dc CNM [facility], uncomplicated, 3 pushes Delivery Date: 09/04/16 Last Updated by: Millie Medina CNM epidural, IOL for postdates, uncomplicated, epidural had a painful window Delivery Date: 09/30/18 Last Updated by: OTIS Link
[2023-06-30] MEDS: Normal Saline 1,000 ML 1000 ML IV (09:39)
[2023-06-30] MEDS: Ondansetron 4 MG/2 ML VIAL IVP (09:40)
[2023-06-30] MEDS: Ketorolac 15 MG/ML VIAL IVP (09:44)
[2023-06-30] MEDS: ACETAMINOPHEN 1,000 MG/100 ML BTL 400 MG IVPB (09:47)
[2023-06-30 10:07] LABS: Abs Immature Grans 0.02 10^3/uL (0.0-0.06); Absolute Basophil Count 0.05 10^3/uL (0.0-0.2); Absolute Eosinophil Count 0.11 10^3/uL (0.0-0.7); Absolute Monocyte Count 0.64 10^3/uL (0.1-0.8); Basophils % 0.8; Eosinophils % 1.7; HCT 40.8 % (36.0-46.0); HGB 13.6 g/dL (11.2-15.7); Immature Grans % 0.3; Lymphocytes % 30.7; MCH 27.4 pg (27.0-33.0); MCHC 33.3 % (32.0-36.0); MCV 82 fL (80-95); MPV 9.1 fL (8.0-11.0); Monocytes % 9.8; Neutrophils % 56.7; Platelet Count 309 10^3/uL (130-400); RBC 4.97 10^6/uL (3.93-5.22); RDW 12.1 % (11.7-14.6); RDW-SD 36.6 fL; WBC 6.52 10^3/uL (4.4-10.8)
[2023-06-30 10:09] LABS: ESR 11 mm/hr (0-20)
[2023-06-30 10:25] LABS: Lactate 0.9 mmol/L (0.6-1.4)
[2023-06-30 10:27] LABS: ALT 22 U/L (14-59); AST 19 U/L (15-37); Albumin 4.3 g/dL (3.4-5.0); Alkaline Phosphatase 61 U/L (46-116); BUN 9 mg/dL (7-18); Bilirubin, Total 0.5 mg/dL (0.2-1.0); C-Reactive Protein 1.45 mg/dL (<or=0.5); CREATININE 0.9 mg/dL (0.55-1.02); Calcium 9.4 mg/dL (8.5-10.1); Chloride 103 mmol/L (98-107); Creatine Kinase 105 U/L (26-192); Estimated GFR 87.65 (mL/min/1.73m2); Glucose 91 mg/dL (74-106); Lipase 36 U/L (16-77); Magnesium 1.9 mg/dL (1.8-2.4); Potassium 3.4 mmol/L (3.5-5.1); Sodium 140 mmol/L (136-145); Total Protein 8.7 g/dL (6.4-8.2); Troponin I < 50 ng/L (< or =60)
[2023-06-30 10:33] LABS: Bilirubin Negative (Negative); Blood Trace-intact (Negative); Clarity Sl Cloudy (Clear); Glucose Negative (Negative); Ketones Negative (Negative); Leukocyte Esterase Small (Negative); Nitrite Negative (Negative); Specific Gravity 1.015 (1.005-1.025); Urobilinogen 0.2 mg/dL (Up to 0.2)
[2023-06-30 10:40] LABS: Procalcitonin < 0.1 ng/mL
[2023-06-30 10:42] LABS: Epithelial Cells Many HPF (Negative); RBC 0-2 HPF (0-2)
[2023-06-30 10:43] LABS: Bacteria Few HPF (Negative); C & S Indicated? No/Sq. Contamination; Casts Negative LPF (Negative); Crystals Negative HPF (Negative); Mucus Negative (Negative)
[2023-06-30 10:52] LABS: COVID-19 PCR Negative (Negative); Influenza A PCR Negative (Negative); Influenza B PCR Negative (Negative); RSV PCR Negative (Negative)
[2023-06-30 11:27] LABS: Source Nasopharynx
[2023-06-30] MEDS: Omnipaque 350 MG/ML 100 ML BTL IJ (11:54)
[2023-06-30] MEDS: Normal Saline - Diluent 50 ML VIAL IJ (11:55)
== END 2023-06-30 13:04 | disposition home or self-care (01) ==
PROVIDERS: Emergency Provider Physician Assistant; PCP Nurse Practitioner Family
DX: R11.2 Nausea with vomiting, unspecified (principal); R10.32 Left lower quadrant pain; N83.202 Unspecified ovarian cyst, left side; F17.210 Nicotine dependence, cigarettes, uncomplicated; Z11.52 Encounter for screening for COVID-19
CPT/HCPCS: 36415; 80053; 81025; 82550; 83690; 84145; 85652; 87637; 96361; 96374; 96375; 99285; 74177; 81003; 81015; 83605; 83735; 84484; 85025; 86140; 99284; J0131; J1885; J2405; J3490

== ENCOUNTER 2024-07-18 11:15 | Outpatient (REF) | payer MEDICAID, SELFPAY | END 2024-07-18 11:16 | disposition home or self-care (01) | LOC: LBN 11:15 | PROVIDERS: PCP Nurse Practitioner Family; Visit Provider Nurse Practitioner Women's Health | DX: N76.0 Acute vaginitis (principal); N89.8 Other specified noninflammatory disorders of vagina | CPT/HCPCS: 87480; 87510; 87660 ==

== ENCOUNTER 2025-04-24 16:29 | Outpatient (REF) | payer MEDICAID, SELFPAY ==
[2025-04-24 21:28] LABS: Glucose Negative (Negative)
== END 2025-04-24 16:30 | disposition home or self-care (01) ==
LOC: NCHCN 16:29
PROVIDERS: PCP Nurse Practitioner Family; Visit Provider Family Medicine
DX: R30.9 Painful micturition, unspecified (principal)
CPT/HCPCS: 81003; 87086